=== PATIENT | female | born 1930 | race Caucasian/White ===

== ENCOUNTER → 2019-11-01 | Outpatient (CLI) | payer MEDICARE, OTHER ==
[~2019-11-01] MED LIST: ANAS1 PO; ASPI81CH PO; ASPI81EC PO; CALCIUM PO; CIPR500 PO; ESSENTIAL FATTY ACID PO; GLUCOSAMINE PO; HYDACE5 PO; LISI5 PO; LISINOPRIL PO; METO25ER PO; OMEG1CAP30 PO; PHENA200 PO; RXPHEN200 PO; SELENIUM PO; SELENIUM200 MC1 PO; SULTRIDS PO; VENL37.5ER PO; VITAMIN C PO; VITAMIN D-3 PO; [UNRECOGNIZED DRUG - CODE] PO; [UNRECOGNIZED DRUG - OTHER] PO
== END | disposition home or self-care (01) ==
LOC: LAB SHORT 16:31 → LAB EV 16:31
DX: N64.4 Mastodynia (principal)
CPT/HCPCS: 87070; 87075; 87205

== ENCOUNTER → 2020-06-19 | Outpatient (CLI) | payer MEDICARE, OTHER | END | disposition home or self-care (01) | LOC: PLD 15:54 → LAB SHORT 15:54 | DX: N64.59 Other signs and symptoms in breast (principal) | CPT/HCPCS: 88305 ==

== ENCOUNTER 2020-09-21 06:38 | Day surgery (SDC) | payer MEDICARE, OTHER ==
[~2020-09-21] VITALS: Ht 157.5 cm; Wt 52.2 kg
[~2020-09-21 06:38] MED LIST changes: +CIDAFLEX TABLE1 EAC1 PO; +OMEGA-3 FISH O1 EAC6 PO; +SELENIUM 100 MCG PO; +VIT B COMPLEX PO; +VITAMIN D31000 UNI1 PO
--- NOTE | 2020-09-21 08:30 | NUR ---
TO RECOVERY ROOM VIA BED. PT ALERT AND ORIENTED. TR BAND INTACT WITH 12 CC AIR. CIRCULATION, MOTION, SENSATION NORMAL.
--- NOTE | 2020-09-21 10:08 | NUR ---
TYLENOL 650 MG PO GIVEN FOR 8/10 LEFT ARM AND SHOULDER PAIN.
--- NOTE | 2020-09-21 10:13 | NUR ---
PT SITTING AT EDGE OF BED. SAID ARM AND SHOULDER FEEL BETTER. MASSAGED LEFT SHOULDER WELL TYLENOL. 1 CC AIR REMOVED FROM TR BAND.
--- NOTE | 2020-09-21 10:19 | NUR ---
BLEEDING AT ARTERIAL SITE. 3 CC AIR INSTILLED. PT LEFT SHOULDER FEELING BETTER SITTING AT EDGE OF BED. DR. JOHNSTON HERE TO DISCUSS RESULTS.
--- NOTE | 2020-09-21 10:53 | NUR ---
2 CC AIR REMOVED FROM TR BAND NO BLEEDING AT SITE. SHOULDER PAIN RESOLVED.
--- NOTE | 2020-09-21 11:14 | NUR ---
REMAINDER OF AIR REMOVED FROM TR BAND. NO BLEEDING AT SITE.
--- NOTE | 2020-09-21 11:49 | NUR ---
DRESSED FOR DISCHARGE. RIGHT RADIAL SITE UNCHANGED.
--- NOTE | 2020-09-21 11:50 | NUR ---
DRESSED FOR DISCHARGE. DISCHARGE INSTRUCTIONS GIVEN WITH VERBAL AND WRITTEN UNDERSTANDING.
--- NOTE | 2020-09-21 12:00 | NUR ---
IV REMOVED INTACT. 2X2,COBAN AND MANUAL PRESSURE APPLIED.
--- NOTE | 2020-09-21 12:09 | NUR ---
TR BAND REMOVED. NO BLEEDING AT SITE. CLOTH DOT AND IMMOBILIZER APPLIED.
--- NOTE | 2020-09-21 12:28 | NUR ---
DISCHARGED HOME VIA WHEELCHAIR. DISCHARGE INSTRUCTIONS REVIEWED WITH DAUGHTER.
== END 2020-09-21 12:15 | disposition home or self-care (01) ==
LOC: MHTC 06:38
DX: I35.0 Nonrheumatic aortic (valve) stenosis (principal); E78.5 Hyperlipidemia, unspecified; I10 Essential (primary) hypertension; I25.10 Atherosclerotic heart disease of native coronary artery without angina pectoris; Z79.82 Long term (current) use of aspirin
CPT/HCPCS: 76937; 93454; 99152; A9270; C1769; C1894; J1644; J2250; J3010; J7030; J7050; Q9967

== ENCOUNTER 2021-03-26 06:09 | Day surgery (SDC) | payer MEDICARE, OTHER ==
[~2021-03-26] VITALS: Ht 157.5 cm; Wt 53.9 kg
--- NOTE | 2021-03-26 09:15 | NUR ---
PT DENIES PAIN OR NAUSEA POST PROCEDURE. DRESSING TO R BREAST, GAUZE, MEFIX AND BREAST BINDER IN PLACE. GIVEN RX AND DC INSTRUCTIONS. PT VERBALIZES AN UNDERSTANDING s QUESTIONS. IV DC'D, CATH INTACT AND PRESSURE DRESSING APPLIED. HEARING AIDS X [address] PT DRESSED s ASSISTANCE. TAKEN TO RESTROOM VIA WC. OTD IN IN NAD, SON IN LAW, IS RIDE HOME. DAUGHTER CALLED AND GIVEN INSTRUCTIONS. NO QUESTIONS.
== END 2021-03-26 22:53 | disposition home or self-care (01) ==
LOC: ORSCMMR 06:09 → ORD 07:30 → ORSCMMR 22:53
PROVIDERS: Surgery
PROC: 0HBT0ZX Excision of Right Breast, Open Approach, Diagnostic (ICD-10-PCS; principal; 2021-03-26 07:30)
DX: D24.1 Benign neoplasm of right breast (principal); Z85.3 Personal history of malignant neoplasm of breast; I10 Essential (primary) hypertension; I25.2 Old myocardial infarction; Z79.899 Other long term (current) drug therapy; Z79.82 Long term (current) use of aspirin
CPT/HCPCS: 88305; J0690; J2250; J2704; J3010; J7120